=== PATIENT | male | born 1985 | race Caucasian/White ===

== ENCOUNTER 2020-11-04 16:23 | Emergency (ER) | payer OTHER ==
[2020-11-04 16:34] VITALS: TEMP 98.2
[2020-11-04] MEDS ORDERED: methylPREDNISolone SOD SUCCI 125 MG/2 ML VIAL IM ONE (16:47)
[2020-11-04] MEDS ORDERED: KETOROLAC 15 MG/ML 1 ML VIAL IM STA (16:47)
--- NOTE | 2020-11-04 16:51 | ED ---
General Adult HPI - General Chief complaint: Extremity Problem,Nontraumatic Stated complaint: sciatic nerve pain Time Seen by Provider: 11/04/20 16:35 Source: patient, RN notes reviewed Mode of arrival: ambulatory Limitations: no limitations - History of Present Illness Initial comments: Patient is a 35-year-old male that presents to the emergency room with left- sided sciatica pain that radiates down the left leg. He notes that he's been to the chiropractor approximately 3 times this issue with no relief. He notes that he came in due to pain. He notes his pain as a 9-10 out of 10 unrelieved with any adjustments and/or at home medications. She did appear to be in moderate amounts of pain and discomfort while sitting up in bed during exam and interview. He denied any bladder or bowel retention/incontinence, weakness decreased range of motion or strength in the left lower extremity. He denied any chest pain short of breath headache nausea vomiting diarrhea constipation fever fatigue chills. - Related Data Previous Rx's Medication Instructions Recorded predniSONE 50 mg PO DAILY #5 tab 11/04/20 Allergies Allergy/AdvReac Type Severity Reaction Status Date / Time No Known Allergies Allergy Verified 11/04/20 16:34 Review of Systems ROS Statement: Those systems with pertinent positive or pertinent negative responses have been documented in the HPI. ROS Other: All systems not noted in ROS Statement are negative. Past Medical History Past Medical History: No Reported History History of Any Multi-Drug Resistant Organisms: None Reported Past Surgical History: No Surgical Hx Reported Past Psychological History: No Psychological Hx Reported Smoking Status: Former smoker Past Alcohol Use History: Occasional Past Drug Use History: None Reported General Exam Limitations: no limitations General appearance: alert, in no apparent distress Head exam: Present: atraumatic, normocephalic, normal inspection Eye exam: Present: normal appearance, PERRL, EOMI. Absent: scleral icterus, conjunctival injection, periorbital swelling Neck exam: Present: normal inspection Respiratory exam: Present: normal lung sounds bilaterally. Absent: respiratory distress, wheezes, rales, rhonchi, stridor Cardiovascular Exam: Present: regular rate, normal rhythm, normal heart sounds. Absent: systolic murmur, diastolic murmur, rubs, gallop, clicks GI/Abdominal exam: Present: soft, normal bowel sounds. Absent: distended, tenderness, guarding, rebound, rigid Extremities exam: Present: normal inspection, full ROM, normal capillary refill. Absent: tenderness, pedal edema, joint swelling, calf tenderness Back exam: Present: normal inspection, tenderness (Left SI joint), other (Positive a well leg raise test on the left side.) Neurological exam: Present: alert, oriented X3, CN II-XII intact Psychiatric exam: Present: normal affect, normal mood Skin exam: Present: warm, dry, intact, normal color. Absent: rash Course Vital Signs 11/04/20 11/04/20 16:31 17:30 Temperature 98.2 F Pulse Rate 88 73 Respiratory 16 18 Rate Blood Pressure 148/88 142/75 O2 Sat by Pulse 99 96 Oximetry Medical Decision Making - Medical Decision Making 35-year-old male with left-sided sciatica radiating down the left leg. Lumbar x-ray, 125 mg of methylprednisolone, 15 mg of Toradol ordered. X-ray negative for any acute process. Case discussed with Dr. Cheng him a patient can discharge home in stable condition with follow-up to primary care and possibly get a referral for physical therapy. - Radiology Data Radiology results: report reviewed, image reviewed Lumbar spine x-ray: Degenerative disc disease, suspect spondylolysis spinal listhesis L5- S1 Disposition Clinical Impression: Sciatica, left side Disposition: HOME SELF-CARE Condition: Stable Instructions (If sedation given, give patient instructions): Sciatica (ED), Lumbar Radiculopathy (ED) Additional Instructions: Please return to the Emergency Department if symptoms worsen or any other concerns. Follow-up with primary care and potentially get a physical therapy prescription. Take at home pain medications for symptom control. Avoid any strenuous activity such as bending twisting lifting. Take prednisone as prescribed. Is patient prescribed a controlled substance at d/c from ED?: No Referrals: Jim Farrell DO [Primary Care Provider] - 1-2 days Time of Disposition: 17:32
--- NOTE | 2020-11-04 17:29 | XR ---
Lumbar spine HISTORY: Left-sided sciatica 3 views the lumbar spine, no comparisons Lumbar vertebral bodies show preserved height and bone mineralization. There is loss of disc height a t L5-S1. Anterolisthesis grade 1 L5-S1. Suspect there may be spondylolysis at L5. There is associated spondylosis. IMPRESSION: Degenerative disc disease, suspect spondylolysis, spinal listhesis L5-S1.
[2020-11-04 17:30] VITALS: BP 142/75; PULSE 73; RESP 18
== END 2020-11-04 18:06 | disposition home or self-care (01) ==
LOC: EC 16:23
DX: M54.32 Sciatica, left side (principal); Z87.891 Personal history of nicotine dependence
CPT/HCPCS: 72100; 99283; 96372; J2930; J1885

== ENCOUNTER 2020-12-02 13:11 | Emergency (ER) | payer OTHER ==
[2020-12-02 13:21] VITALS: TEMP 97.7
[2020-12-02] MEDS ORDERED: LIDOCAINE 5% PATCH TOPICAL STA (13:56)
[2020-12-02] MEDS ORDERED: HYDROmorphone 1 MG/ML 1 ML SYRINGE IM STA (13:56)
--- NOTE | 2020-12-02 13:56 | ED ---
Back Pain HPI - General Chief Complaint: Back Pain/Injury Stated Complaint: sciatic nerve Time Seen by Provider: 12/02/20 13:25 Source: patient Limitations: no limitations - History of Present Illness Initial Comments: 35-year-old male presents to the emergency department with a chief complaint of sciatica. Patient reports he was emergency department about one month ago with similar symptoms. He was advised to follow-up with supplier quality specialist, however he went back to his primary care who advised him to undergo some physical therapy. Patient reports he performed his own physical therapy exercises after doing some online research. States his symptoms improved until he developed pain yesterday for no particular reason. States he was not exerting himself. States most of the pain is located in the paraspinal lumbar region with radiation down the lower extremity. Reports taking [id number] analgesics with some improvement in symptoms. Denies any cell anesthesia, urinary retention with overflow or bowel incontinence. - Related Data Home Medications Medication Instructions Recorded Confirmed Cyclobenzaprine [Flexeril] 10 mg PO DAILY 12/02/20 12/02/20 Dextroamphetamine/Amphetamine 10 mg PO TID 12/02/20 12/02/20 [Adderall] Ibuprofen [Motrin] 600 mg PO Q8HR PRN 12/02/20 12/02/20 Lidocaine 5% Patch [Lidoderm] 1 patch TOPICAL DAILY PRN 12/02/20 12/02/20 Allergies Allergy/AdvReac Type Severity Reaction Status Date / Time No Known Allergies Allergy Verified 12/02/20 13:48 Review of Systems ROS Statement: Those systems with pertinent positive or pertinent negative responses have been documented in the HPI. ROS Other: All systems not noted in ROS Statement are negative. Past Medical History Past Medical History: No Reported History History of Any Multi-Drug Resistant Organisms: None Reported Past Surgical History: No Surgical Hx Reported Past Psychological History: ADD/ADHD Smoking Status: Former smoker Past Alcohol Use History: Occasional Past Drug Use History: None Reported General Exam Limitations: no limitations General appearance: alert, in no apparent distress, obese Head exam: Present: atraumatic, normocephalic, normal inspection Eye exam: Present: normal appearance, PERRL, EOMI Pupils: Present: normal accommodation ENT exam: Present: normal exam, normal oropharynx, mucous membranes moist Neck exam: Present: normal inspection, full ROM. Absent: tenderness, lymphadenopathy Respiratory exam: Present: normal lung sounds bilaterally. Absent: respiratory distress Cardiovascular Exam: Present: regular rate, normal rhythm, normal heart sounds. Absent: systolic murmur GI/Abdominal exam: Present: soft. Absent: distended, tenderness Extremities exam: Present: normal inspection, full ROM. Absent: tenderness Back exam: Present: normal inspection, full ROM, tenderness, paraspinal tenderness, other (Positive leg raise test). Absent: CVA tenderness (R), CVA tenderness (L), muscle spasm, vertebral tenderness Neurological exam: Present: alert, oriented X3 Psychiatric exam: Present: normal affect, normal mood Skin exam: Present: warm, dry, intact, normal color Course Vital Signs 12/02/20 13:19 Temperature 97.7 F Pulse Rate 109 H Respiratory 20 Rate Blood Pressure 134/90 O2 Sat by Pulse 96 Oximetry Disposition Clinical Impression: Left lumbar radiculopathy Disposition: HOME SELF-CARE Condition: Stable Instructions (If sedation given, give patient instructions): Acute Low Back Pain (ED), Lower Back Exercises (ED), Lumbar Radiculopathy (ED) Additional Instructions: Please return to the Emergency Department if symptoms worsen or any other concerns. Follow-up with supplier quality specialist. Is patient prescribed a controlled substance at d/c from ED?: No Referrals: Jim Farrell DO [Primary Care Provider] - 1-2 days Time of Disposition: 14:30
[2020-12-02 14:45] VITALS: BP 136/89; PULSE 89; RESP 16
== END 2020-12-02 14:45 | disposition home or self-care (01) ==
LOC: EC 13:11
DX: M54.16 Radiculopathy, lumbar region (principal); F90.9 Attention-deficit hyperactivity disorder, unspecified type; Z87.891 Personal history of nicotine dependence
CPT/HCPCS: 99283; 96372; J1170

== ENCOUNTER 2020-12-05 07:43 | Emergency (ER) | payer OTHER ==
[2020-12-05 07:48] VITALS: BP 145/104; PULSE 106; RESP 18; TEMP 97.7
[2020-12-05] MEDS ORDERED: HYDROmorphone 1 MG/ML 1 ML SYRINGE IVP STA (07:53)
[2020-12-05] MEDS ORDERED: KETOROLAC 15 MG/ML 1 ML VIAL IVP STA (07:53)
[2020-12-05] MEDS ORDERED: ONDANSETRON 4 MG/2 ML VIAL IVP STA (07:53)
--- NOTE | 2020-12-05 07:56 | ED ---
Back Pain HPI - General Source: patient, RN notes reviewed Limitations: no limitations <Wu Pham - Last Filed: 12/05/20 07:54> <Jose Roche - Last Filed: 12/05/20 09:17> - General Chief Complaint: Back Pain/Injury Stated Complaint: Back Pain Time Seen by Provider: 12/05/20 07:48 - History of Present Illness Initial Comments: 35-year-old male presents emergency Department chief complaint of low back pain. Patient states he had a history of this a few months ago in which he was advised to follow-up with states that he did some physical therapy at home by himself. Patient states that it seemed to help him on away. Patient states pain started recently was seen here Wednesday for complaints. Patient states pain had worsened. Patient is here requesting MRI. Patient did not follow-up with his PCP or demolition specialist as extracted again. Patient denies any bowel, bladder incontinence or retention. Denies any saddle anesthesias. Patient states he has some pain and radiates on his left leg with occasional paresthesias. Patient's pain is worse with movement better at rest. No (Wu Pham) - Related Data Home Medications Medication Instructions Recorded Confirmed Cyclobenzaprine [Flexeril] 10 mg PO DAILY 12/02/20 12/02/20 Dextroamphetamine/Amphetamine 10 mg PO TID 12/02/20 12/02/20 [Adderall] Ibuprofen [Motrin] 600 mg PO Q8HR PRN 12/02/20 12/02/20 Lidocaine 5% Patch [Lidoderm] 1 patch TOPICAL DAILY PRN 12/02/20 12/02/20 Previous Rx's Medication Instructions Recorded methylPREDNISolone [Medrol Dose 4 mg PO DIRECTED #1 pack 12/02/20 Pack] Allergies Allergy/AdvReac Type Severity Reaction Status Date / Time No Known Allergies Allergy Verified 12/05/20 07:47 Review of Systems ROS Other: All systems not noted in ROS Statement are negative. <Wu Pham - Last Filed: 12/05/20 07:54> ROS Other: All systems not noted in ROS Statement are negative. <Jose Roche - Last Filed: 12/05/20 09:17> ROS Statement: Those systems with pertinent positive or pertinent negative responses have been documented in the HPI. Past Medical History Past Medical History: No Reported History History of Any Multi-Drug Resistant Organisms: None Reported Past Surgical History: No Surgical Hx Reported Past Psychological History: ADD/ADHD Smoking Status: Former smoker Past Alcohol Use History: Occasional Past Drug Use History: None Reported <Wu Pham Moni - Last Filed: 12/05/20 07:54> General Exam Limitations: no limitations General appearance: alert, in no apparent distress Head exam: Present: atraumatic, normocephalic, normal inspection Eye exam: Present: normal appearance, PERRL, EOMI. Absent: scleral icterus, conjunctival injection, periorbital swelling Respiratory exam: Present: normal lung sounds bilaterally. Absent: respiratory distress, wheezes, rales, rhonchi, stridor Cardiovascular Exam: Present: regular rate, normal rhythm, normal heart sounds. Absent: systolic murmur, diastolic murmur, rubs, gallop, clicks GI/Abdominal exam: Present: soft, normal bowel sounds. Absent: distended, tenderness, guarding, rebound, rigid Extremities exam: Present: other (Lower extremities neurovascular intact equal color equal warmth., Pain with range of motion lower extremities.) Neurological exam: Present: alert, reflexes normal. Absent: motor sensory deficit Skin exam: Present: warm, dry, intact, normal color. Absent: rash <Wu Pham - Last Filed: 12/05/20 07:54> Course Vital Signs 12/05/20 07:46 Temperature 97.7 F Pulse Rate 106 H Respiratory 18 Rate Blood Pressure 145/104 O2 Sat by Pulse 96 Oximetry Medical Decision Making <Jose Roche - Last Filed: 12/05/20 09:17> - Medical Decision Making 35-year-old male, well-appearing male, able to ambulate in room with steady gait. There is no evidence of foot drop. Patient denies any saddle anesthesia, bowel or bladder incontinence. Patient denies any recent surgeries for spinal injections. No nausea vomiting diarrhea or fevers. Patient describes low left lumbar back pain, radiating deep into the left buttock. Reports that pain is better when he squats which relieves pain. Patient directed to continue his Medrol Dosepak as previously prescribed on 12/02 along with the Flexeril and Motrin. Will be directed to follow up with orthopedics and her primary care doctor. Case discussed with Dr Grullon. (Jose Roche) Disposition <Wu Pham - Last Filed: 12/05/20 07:54> Is patient prescribed a controlled substance at d/c from ED?: No Time of Disposition: 09:17 <Jose Roche - Last Filed: 12/05/20 09:17> Clinical Impression: Lumbar radiculopathy Disposition: HOME SELF-CARE Condition: Fair Instructions (If sedation given, give patient instructions): Acute Low Back Pain (ED), Lower Back Exercises (ED) Additional Instructions: Continue your previously prescribed medications Flexeril and Medrol Dosepak. Follow up with the primary care doctor orthopedics as referred. No heavy lifting. Referrals: Jim Farrell, [Primary Care Provider] - 1-2 days Buster Mittal PAC [PHYSICIAN CERTIFIED MEDICAL ASSISTANT] - 1-2 days
--- NOTE | 2020-12-05 08:53 | CT ---
EXAMINATION TYPE: CT lumbar spine wo con DATE OF EXAM: 12/05/2020 COMPARISON: Plain film 11/04/2020 HISTORY: Back pain CT DLP: 1079.6 mGycm Automated exposure control for dose reduction was used. An unenhanced CT of the lumbar spine was performed. Bone and soft tissue window settings are submitt ed as well as coronal and sagittal reconstructions. FINDINGS: Bilateral spondylolysis present at L5. Minimal anterolisthesis grade 1 L5-S1, retrolisthesis grade 1 at L4-5. L1-L2: Normal disc space height. No disc herniation protrusion or central stenosis. No facet joint arthropathy. No evidence for foraminal encroachment. L2-L3: Normal disc space height. No disc herniation protrusion or central stenosis. No facet joint arthropathy. No evidence for foraminal encroachment. L3-L4: Minimal posterior disc bulge contacts the anterior thecal sac. No significant spinal stenosis or foraminal encroachment. L4-L5: Suspect there is a posterior left paracentral disc herniation, there is abnormal soft tissue a ffecting the lateral recess on the left, some local mass effect likely present on the left L5 nerve r oot. This may represent a sequestered fragment extending from the L4-5 disc space posterior to the L5 vertebral body, there is a broad-based posterior disc bulge present effacing the anterior thecal sac . Circumferential extension endplate disc complex encroaches upon the inferior aspect of the neural f oramina. No significant spinal stenosis. L5-S1: Posterior disc bulge contacts the proximal S1 nerve root on the right, no significant spinal s tenosis. Circumferential extension endplate disc complex encroaches on the foramina likely contribute d by the listhesis. Spina bifida occulta noted at L5. IMPRESSION: Congenital anomaly L5, spondylolysis with spondylolisthesis, degenerative disc disease. Disc herniati on suspected L4-5 with possible sequestered fragment involving the lateral recess at as described, ad ditional findings above.
== END 2020-12-05 09:26 | disposition home or self-care (01) ==
LOC: EC 07:43
DX: M54.16 Radiculopathy, lumbar region (principal); F90.9 Attention-deficit hyperactivity disorder, unspecified type; Z87.891 Personal history of nicotine dependence; Z79.52 Long term (current) use of systemic steroids; Z79.1 Long term (current) use of non-steroidal anti-inflammatories (NSAID)
CPT/HCPCS: 72131; 99283; 96374; 96375 ×2; J2405; J1170; J1885

== ENCOUNTER → 2020-12-16 | Outpatient (CLI) | payer OTHER ==
--- NOTE | 2020-12-17 03:36 | MR ---
EXAMINATION TYPE: MR lumbar spine wo con DATE OF EXAM: 12/16/2020 COMPARISON: None HISTORY: Low back pain down left leg to foot for 1 month. Multiplanar multiecho imaging of the lumbar spine was performed without contrast. There is normal alignment of the vertebra. There is no significant disc space narrowing. There is a l arge disc herniation posteriorly at L4-5 and the spinal canal and extending inferiorly along the post erior aspect of the L5 vertebral body on the left side. There is impingement on the L5 5 S1 nerve eunice t. There is a minimal posterior disc bulge at L5-S1. There is developmentally adequate spinal canal. The re is no lumbar compression fracture. I see no focal bone destruction. There is no paraspinal mass. S acroiliac joints are intact. IMPRESSION: Large disc herniation at L4-5 in the midline into the left side with extruded fragment into the poste rior aspect of L5 vertebra and elevation of the posterior longitudinal ligament. The fragment measure s 12 x 22 mm. There is L5-S1 left-sided neural foraminal impingement. There is small posterior disc b ulging and herniation in the midline at L5-S1.
== END | disposition home or self-care (01) ==
LOC: RADMRIMAIN 18:56
PROVIDERS: ATTEND Orthopaedic Surgery
DX: M51.27 Other intervertebral disc displacement, lumbosacral region (principal)
CPT/HCPCS: 72148

== ENCOUNTER → 2024-02-25 | Outpatient (CLI) | payer OTHER ==
--- NOTE | 2024-02-25 10:39 | CA ---
Exercise Stress Test Report Name: Yamil Melara Exam Date: 02/25/2024 09:17 Exam Location: [place] Stress Ht (in): 72 Wt (lb): 252 BSA: 2.35 Ordering Phys: Wu Garcia DO Referring Phys: Wu Garcia DO Technologist: Yamil Hernadez Age: 38 Gender: M : 1985 Procedure CPT: Indications: E78.2 MIXED HYPERLIPIDEMIA Z82.49 FAMILY HX OF ISC ICD-10 Codes: Patient History: Chest pain and hyperlipidemia. Medications: Meds past 24 hrs: Pretest Chest Pain: STRESS TEST Juanjose Protocol Exercise Duration (min:sec): 10:[address] Depressions (mm): Angina Score: Reynolds Score: Resting HR (bpm): 51 Peak HR (bpm): 167 Resting BP (mmHg): 123 / 58 Peak BP (mmHg): 189 / 77 MPHR: 181 Target HR: 154 % MPHR: 92 METS: 12.1 Total Dose: Peak Dose: Atropine: Double Product: 41723 BP Response: Stress Termination: TARGET HR REACHED/MAX EXERTION Stress Symptoms: NO SYMPTOMS Stress Summary: ECG ANALYSIS Resting ECG: Stress ECG: CONCLUSIONS Baseline EKG reveals a normal sinus rhythm without significant ST-T changes. Patient walked on a standard Juanjose protocol for a total duration of 10 minutes and achieved a maximal heart rate of 167 bpm which is more than 90% of his predicted maximal heart rate. He developed some fatigue and shortness of breath but did not have any angina. There was no significant arrhythmia. There were no ST segment changes to indicate ischemia. This is a negative stress test with good exercise capacity Dr. Christ Juan MD (Electronically Signed) Final Date: 25 February 2024 10:38
--- NOTE | 2024-02-25 11:22 | CA ---
Transthoracic Echo Report Name: Yamil Melara Age: 38 Gender: M : 1985 Exam Date: 02/25/2024 08:32 Exam Location: [place] Echo Ht (in): 72 Wt (lb): 252 Ordering Physician: Wu Garcia DO Attending/Referring Phys: Wu Garcia DO Telecommunication Engineer Katerin Cazares RDCS Procedure CPT: Indications: E78.2 MIXED HYPERLIPIDEMIA Z82.49 FAMILY HX OF ISC Cardiac Hx: Technical Quality: Fair Contrast 1: Total Dose (mL): Contrast 2: Total Dose (mL): MEASUREMENTS (Male / Female) Normal Values 2D ECHO LV Diastolic Diameter PLAX 5.4 cm 4.2 - 5.9 / 3.9 - 5.3 cm LV Systolic Diameter PLAX 3.4 cm IVS Diastolic Thickness 0.7 cm 0.6 - 1.0 / 0.6 - 0.9 cm LVPW Diastolic Thickness 0.8 cm 0.6 - 1.0 / 0.6 - 0.9 cm LV Relative Wall Thickness 0.3 LVOT Diameter 2.5 cm LV Diastolic Volume MOD BP 181.6 cm??? 67 - 155 / 56 - 104 cm??? LV Systolic Volume MOD BP 78.4 cm??? 22 - 58 / 19 - 49 cm??? LV Ejection Fraction MOD BP 56.8 % >= 55 % LV Cardiac Index MOD BP 2489.1 cm???/min???m??? LV Diastolic Volume MOD 4C 180.6 cm??? LV Systolic Volume MOD 4C 74.6 cm??? LV Ejection Fraction MOD 4C 58.7 % LV Cardiac Index MOD 4C 2555.5 cm???/min???m??? LV Diastolic Length 4C 9.8 cm LV Systolic Length 4C 7.9 cm LV Diastolic Volume MOD 2C 181.8 cm??? LV Systolic Volume MOD 2C 78.6 cm??? LV Ejection Fraction MOD 2C 56.8 % LV Cardiac Index MOD 2C 2488.4 cm???/min???m??? LV Diastolic Length 2C 9.7 cm LV Systolic Length 2C 7.5 cm LA Volume 87.0 cm??? 18 - 58 / 22 - 52 cm??? LA Volume Index 35.6 cm???/m??? 16 - 28 cm???/m??? Ascending Aorta Diameter 3.2 cm DOPPLER AV Peak Velocity 160.6 cm/s AV Peak Gradient 10.3 mmHg AV Mean Velocity 106.5 cm/s AV Mean Gradient 5.2 mmHg AV Velocity Time Integral 34.9 cm LVOT Peak Velocity 104.5 cm/s LVOT Peak Gradient 4.4 mmHg LVOT Velocity Time Integral 23.4 cm LVOT Stroke Volume 110.7 cm??? LVOT Stroke Volume Index 47.1 ml/m??? LVOT Cardiac Index 2670.3 cm???/min???m??? AV Area Cont Eq vti 3.2 cm??? AV Area Cont Eq pk 3.1 cm??? MV Area PHT 4.7 cm??? Mitral E Point Velocity 85.8 cm/s Mitral A Point Velocity 49.1 cm/s Mitral E to A Ratio 1.7 MV Deceleration Time 161.8 ms PV Peak Velocity 125.8 cm/s PV Peak Gradient 6.3 mmHg FINDINGS Left Ventricle Left ventricular ejection fraction is estimated at 55-60 %. Moderately increased left ventricular diastolic volume. Moderately increased left ventricular systolic volume. No obvious regional wall motion abnormalities. Right Ventricle Normal right ventricular size and function. Unable to estimate the right ventricular systolic pressure. Right Atrium Normal right atrial size. Left Atrium Moderately increased left atrial volume. Mildly increased left atrial area. Mitral Valve Structurally normal mitral valve. No evidence for mitral valve prolapse. No mitral stenosis. Trace mitral regurgitation. Aortic Valve Trileaflet aortic valve. No aortic valve stenosis or regurgitation. Tricuspid Valve Structurally normal tricuspid valve. No tricuspid stenosis. No tricuspid regurgitation. Pulmonic Valve Structurally normal pulmonic valve. No pulmonic stenosis. No pulmonic regurgitation. Pericardium No pericardial effusion. Aorta Normal size aortic root and proximal ascending aorta. CONCLUSIONS Left ventricle is at upper limits of normal. Good systolic function mild concentric LVH. Minimal mitral and tricuspid regurgitation. No pericardial Previewed by: Dr. Christ Juan MD (Electronically Signed) Final Date: 25 February 2024 11:21
== END | disposition home or self-care (01) ==
LOC: RADNMMAIN 08:06
PROVIDERS: ATTEND Family Medicine
DX: E78.2 Mixed hyperlipidemia (principal); R06.02 Shortness of breath; R53.83 Other fatigue; Z82.49 Family history of ischemic heart disease and other diseases of the circulatory system; I08.1 Rheumatic disorders of both mitral and tricuspid valves
CPT/HCPCS: 93017; 93306